=== PATIENT | male | born 1985 | race Caucasian/White ===

== ENCOUNTER → 2020-12-26 10:01 | Outpatient (BNVA) | payer OTHER, SELFPAY | PROVIDERS: Family Provider Nurse Practitioner Family; PCP Nurse Practitioner Family; Visit Provider Nurse Practitioner Family | DX: Z20.822 Contact with and (suspected) exposure to COVID-19 (principal) | CPT/HCPCS: 87635 ==

== ENCOUNTER 2022-04-15 08:10 | Inpatient (IN) | payer MEDICAID, SELFPAY ==
[2022-04-15] VITALS (19 sets, daily range): BP systolic 102–157; BP diastolic 69–95; PULSE 66–108; RESP 12–24; TEMP 36.8–39; O2SAT 91–100; BMI 25.1
--- NOTE | 2022-04-15 08:32 | ED_ITS ---
HPI - Abdominal Pain General: Chief Complaint: Abdominal Pain Stated Complaint: Abd pain Time Seen by Provider: 04/15/22 08:21 History of Present Illness: Patient is a 36-year-old male comes to the ED with abdominal pain. Symptoms started approximately 4 days ago. Onset of pain was gradual and progressively got more severe. Abdominal pain is located in the right lower quadrant. He describes it as an aching pain that is constant. He rates the pain currently a 9 out of 10. he has not been able to sleep for the past 2 days due to the pain. Any movement causes worsening pain and if he rests and lays still he says the pain does improve. He has been taking ibuprofen for the past couple days to help with pain. He endorses a decreased appetite, nausea and had 1 episode of emesis yesterday. Patient states that the over the weekend before pain started he was doing a lot of lifting and yard work. Denies any fevers, chills, chest pain, shortness of breath, bladder or bowel symptoms. Patient had a few sips of water this morning but has not had anything to eat since early last night. Denies any past abdominal surgeries. Associated Symptoms: Reports nausea and vomiting; Denies chills, constipation, diarrhea, dysuria, fever(s), hematochezia and hematuria Review of Systems Const: Reports: change in appetite (Decreased); Denies: fever(s), chills or fatigue Eyes: Denies: change in vision or eye discomfort ENMT: Denies: throat pain, odynophagia, nasal discharge or nasal congestion Card: Denies: chest pain, palpitations, edema, swelling of feet/ankles, dyspnea on exertion or orthopnea Resp: Denies: dyspnea, productive cough or non-productive cough GI: Reports: abdominal pain, nausea and vomiting; Denies: diarrhea, constipation or hematochezia : Denies: flank pain, difficulty urinating, dysuria or hematuria Musc: Denies: neck pain, back pain or extremity swelling Skin/Breast: Denies: rash or new lesions Neuro: Denies: headache(s), numbness in extremities or weakness in extremities PFS ED PFSH: Medical History Anxiety HTN (hypertension) Family History Mother Aneurysm Brother Seizure disorder Father Pacemaker Grandfather Pacemaker Other Heart disease Hypertension Social History Smoking and tobacco status: current every day smoker cigarettes Alcohol intake: current Alcohol intake frequency: holidays/special occasions only Physical Exam Const: COMMON NORMALS: patient oriented x3 and alert GENERAL APPEARANCE: cooperative HENMT: COMMON NORMALS: normocephalic HEAD & SCALP: normocephalic MOUTH: Normal oral and palatal mucosa present THROAT: posterior oropharynx normal and uvula midline Eye: COMMON NORMALS: Equal, round and reactive pupils present and conjunctivae normal CONJUNCTIVA: Yes conjunctivae normal PUPIL: Yes Equal, round and reactive pupils present Neck/C-Spine: COMMON NORMALS: supple GENERAL: Yes normal visual inspection Resp: COMMON NORMALS: normal respiratory effort, No retractions, No use of accessory muscles and clear to auscultation bilaterally AUSCULTATION: clear to auscultation bilaterally Cardio: COMMON NORMALS: regular rate, regular rhythm, S1 normal heart sound present, S2 normal heart sound present, No gallops present (Cardio), No clicks present (Cardio), No murmurs present (Cardio) and Peripheral pulses 2+ throughout RATE: regular rate RHYTHM: regular rhythm HEART SOUNDS: S1 normal heart sound present and S2 normal heart sound present PERIPHERAL PULSES: Peripheral pulses 2+ throughout GI: COMMON NORMALS: Normal to inspection, nondistended, normoactive bowel sounds present, Soft to palpation and no masses PALPATION: Yes Soft to palpation, Yes Tenderness to palpation present (GI) Details: RLQ and Yes Other GI palpation findings present (Positive Rovsing sign) : COMMON NORMALS: Yes no CVA tenderness BLADDER/KIDNEY EXAM: Yes no CVA tenderness Back/Pelvis: COMMON NORMALS: no CVA tenderness Extremity: COMMON NORMALS: normal to inspection and no pedal edema Neuro: COMMON NORMALS: patient oriented x3 and moves all extremities SENSORIUM/ORIENTATION: Yes alert Skin: GENERAL SKIN EXAM: dry skin Course Consultations: Consultation #1: I spoke with Dr. Alba and told about patient case and CT findings of acute appendicitis with likely rupture. Dr. Alba will admit and take to surgery. Time: 09:35 Vital Signs: Vital signs: Vital Signs Temperature 99.4 F 04/15/22 08:20 Pulse Rate 105 H 04/15/22 08:20 Respiratory Rate 18 04/15/22 08:50 Blood Pressure 141/90 04/15/22 08:20 Pulse Oximetry 100 04/15/22 08:50 MDM - Abdominal Pain Medical Decision Making Patient is a 36-year-old male who comes to the ED with abdominal pain. Vitals are stable and patient is afebrile. Patient hasright lower quadrant abdominal tenderness and positive Rovsing sign. White blood cell count 22.3 and CRP 53.3. Rest of the labs are unremarkable. CT of abdomen pelvis shows acute appendicitis with likely rupture but no abscess. I contacted Dr. Alba and told him about patient case and he will be admitting pt and taking him to surgery. Blood cultures pending and patient started on IV Zosyn here in the ED. Lab Data I reviewed the patient's lab results. : 04/15/22 08:31 04/15/22 08:31 Labs/Radiology: Radiology Impressions Abdomen/Pelvis CT 04/15/22 08:53 IMPRESSION: 1. Acute appendicitis with appendiceal rupture likely. 2. Acute inflammatory changes in the RIGHT lower quadrant with free fluid extending to partially encase the cecum. No abscess. 3. Mild small bowel ileus due to the acute appendicitis. Laboratory Results WBC 22.3 10^3/uL (4.0-10.0) H 04/15/22 08:31 RBC 5.18 10^6/uL (4.1-5.3) 04/15/22 08:31 Hgb 16.0 g/dL (11.7-16.6) 04/15/22 08:31 Hct 45.4 % (42.0-52.0) 04/15/22 08:31 MCV 87.6 fl (80-94) 04/15/22 08:31 MCH 30.9 pg (28.0-34.0) 04/15/22 08:31 MCHC 35.2 g/dL (30.0-36.0) 04/15/22 08:31 RDW 12.1 % (12.1-15.1) 04/15/22 08:31 Plt Count 192 10^3/cmm (130-400) 04/15/22 08:31 MPV 10.6 fL (7.4-10.4) H 04/15/22 08:31 Neut % (Auto) 85.1 % 04/15/22 08:31 Lymph % (Auto) 5.9 % 04/15/22 08:31 Dickey % (Auto) 8.3 % 04/15/22 08:31 Eos % (Auto) 0.0 % 04/15/22 08:31 Baso % (Auto) 0.1 % 04/15/22 08:31 Neut # (Auto) 18.99 10^3/uL (1.8-7.7) H 04/15/22 08:31 Lymph # (Auto) 1.3 10^3/uL (0.8-4.8) 04/15/22 08:31 Dickey # (Auto) 1.9 10^3/uL (0.2-0.9) H 04/15/22 08:31 Eos # (Auto) 0.0 10^3/uL (0.0-0.8) 04/15/22 08:31 Baso # (Auto) 0.0 10^3/uL (0.0-0.1) 04/15/22 08:31 Nucleated RBC % (auto) 0 % 04/15/22 08:31 Nucleated RBCs # 0.0 /100WBC 04/15/22 08:31 Sodium 135 mmol/L (136-145) L 04/15/22 08:31 Potassium 4.1 mmol/L (3.5-5.1) 04/15/22 08:31 Chloride 96 mmol/L (98-107) L 04/15/22 08:31 Carbon Dioxide 28 mmol/L (22-29) 04/15/22 08:31 Anion Gap 15.1 (5-19) 04/15/22 08:31 BUN 10 mg/dL (6-20) 04/15/22 08:31 Creatinine 0.8 mg/dL (0.7-1.2) 04/15/22 08:31 GFR Calculation 108.2 mL/min (90-130) 04/15/22 08:31 Glucose 131 mg/dL (65-115) H 04/15/22 08:31 Calculated Osmolality 281 mOsm/kg (285-295) L 04/15/22 08:31 Calcium 10.2 mg/dL (8.5-10.5) 04/15/22 08:31 Total Bilirubin 1.0 mg/dL (0.15-1.2) 04/15/22 08:31 AST 11 U/L (0-40) 04/15/22 08:31 ALT 11 U/L (0-41) 04/15/22 08:31 Alkaline Phosphatase 134 IU/L (40-130) H 04/15/22 08:31 C-Reactive Protein 53.3 mg/L (0.0-4.9) H 04/15/22 08:31 Total Protein 8.0 g/dL (6.6-8.7) 04/15/22 08:31 Albumin 4.9 g/dL (3.5-5.2) 04/15/22 08:31 Globulin 3.1 g/dL (1.3-4.6) 04/15/22 08:31 Lipase 15 U/L (13-60) 04/15/22 08:31 Urine Color Yellow (Yellow) 04/15/22 08:31 Urine Appearance Clear (CLEAR) 04/15/22 08:31 Urine pH 5 (5-7) 04/15/22 08:31 Ur Specific [place] 1.025 (1.005-1.030) 04/15/22 08:31 Urine Protein Neg (Negative) 04/15/22 08:31 Urine Glucose (UA) Norm (Normal) 04/15/22 08:31 Urine Ketones 1+ (Negative) H 04/15/22 08:31 Urine Blood 2+ (Negative) H 04/15/22 08:31 Urine Nitrate Negative (Negative) 04/15/22 08:31 Urine Bilirubin 1+ (Negative) H 04/15/22 08:31 Urine Urobilinogen 1 mg/dL (Negative) H 04/15/22 08:31 Ur Leukocyte Esterase Trace (Negative) H 04/15/22 08:31 Urine RBC None /hpf (0-2) 04/15/22 08:31 Urine WBC 0-4 /hpf (0-5) H 04/15/22 08:31 Ur Squamous Epith Cells None /hpf (0-5) 04/15/22 08:31 Amorphous Sediment Not Reportable 04/15/22 08:31 Urine Bacteria Trace /hpf (NONE) 04/15/22 08:31 Urine Mucus 2+ /hpf 04/15/22 08:31 Discharge Plan Discharge Patient Disposition: Admitted As Inpatient Clinical Impression: Acute appendicitis Qualifiers: Acute appendicitis type: with generalized peritonitis Appendicitis gangrene presence: without gangrene Appendicitis perforation presence: with perforation Appendicitis abscess presence: without abscess Qualified Code(s): K35.20 - Acute appendicitis with generalized peritonitis, without abscess Condition: Stable Coding Level of Care Code 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
[2022-04-15 08:45] LABS: Basophils % 0.1 %; Hematocrit 45.4 % (42.0-52.0); Lymphocytes # 1.3 10^3/uL (0.8-4.8); Lymphocytes % 5.9 %; Mean Corpuscular HGB Conc 35.2 g/dL (30.0-36.0); Mean Corpuscular Hemoglobin 30.9 pg (28.0-34.0); Mean Corpuscular Volume 87.6 fl (80-94); Mean Platelet Volume 10.6 fL (7.4-10.4); Monocytes # 1.9 10^3/uL (0.2-0.9); Monocytes % 8.3 %; Neutrophils # 18.99 10^3/uL (1.8-7.7); Neutrophils % 85.1 %; Nucleated Red Blood Cells % 0 %; Platelet Count 192 10^3/cmm (130-400); Red Blood Count 5.18 10^6/uL (4.1-5.3); Red Cell Distribution Width 12.1 % (12.1-15.1); White Blood Count 22.3 10^3/uL (4.0-10.0)
[2022-04-15 08:49] LABS: Add Urine Microscopic? YES; Bilirubin Urine 1+ (Negative); Blood Urine 2+ (Negative); Glucose Urine UA Norm (Normal); Ketones Urine 1+ (Negative); Leukocyte Esterase Urine Trace (Negative); Nitrate Urine Negative (Negative); Protein Urine Neg (Negative); Specific Gravity, Urine 1.025 (1.005-1.030); Urine Appearance Clear (CLEAR); Urine Color Yellow (Yellow); Urobilinogen Urine 1 mg/dL (Negative); pH Urine 5 (5-7)
[2022-04-15] MEDS: ondansetron 2 mg/ML SDV 2 mL 4 MG IVP (08:49)
[2022-04-15] MEDS: sodium chloride 0.9% 1,000 ML 999 ML IV (08:50)
[2022-04-15] MEDS: morphine 4 mg/mL SDV 1 mL IVP (08:50)
--- NOTE | 2022-04-15 08:53 | CT_ITS ---
WS: [id number] CT ABDOMEN AND PELVIS WITH CONTRAST HISTORY: RLQ tenderness, n/v TECHNIQUE: Imaging performed of the abdomen and pelvis with IV contrast. Single phase imaging of the abdomen. Coronal and sagittal reformats are submitted. All CT scans at [facility] use at [address] one of these dose optimization techniques: automated exposure control; mA and/or kV adjustment per patient size (includes targeted exams where dose is matched to clinical indication); or iterative re construction. IV CONTRAST: Omnipaque 350; 75 mL IV. Oral contrast: No DLP: 1794.56 mGy.cm COMPARISON: None available. Lower thorax: Lung bases are clear. Heart is normal size. No hiatal hernia. Liver/biliary system: Normal size with no intrahepatic dilatation. Normal portal vein. Gallbladder: Normal. No gallstones or wall thickening. No pericholecystic fluid. Pancreas: Normal size pancreas and pancreatic duct. No adjacent inflammation. Spleen: Normal size spleen. No mass or infarct. Adrenal glands: Normal. Right kidney: Normal. Left kidney: Normal. Aorta: Mild atherosclerosis with no aneurysm. Lymphadenopathy: Small mildly vascular lymph nodes in the RIGHT lower quadrant. Free fluid: Small amount of free fluid in the pelvis. There is additional fluid in the RIGHT lower qu adrant extending along the paracolic gutter and partially encasing the cecum. GI tract: The appendix is abnormal. The appendix is dilated with enhancement and appendicolith. Diame ter of the appendix is 15 mm. There is a large amount of adjacent periappendiceal inflammation. Fluid extends along the paracolic gutter and also to partially encase the cecum and towards the inferior l iver. Highly suspicious for ruptured appendicitis. No abscess. Mild dilatation of several central sma ll bowel loops is probably due to an ileus from the appendicitis. Abdominal wall: Unremarkable abdominal wall. No hernia. Pelvis: Minimally distended urinary bladder. Small amount of free fluid in the pelvis. No adenopathy. Bones: Unremarkable. CT/CT abdomen pelvis w con* [id number] IMPRESSION: 1. Acute appendicitis with appendiceal rupture likely. 2. Acute inflammatory changes in the RIGHT lower quadrant with free fluid exte nding to partially encase the cecum. No abscess. 3. Mild small bowel ileus due to the acute appendicitis.
[2022-04-15 09:03] LABS: Alanine Aminotransferase 11 U/L (0-41); Albumin Level 4.9 g/dL (3.5-5.2); Alkaline Phosphatase 134 IU/L (40-130); Anion Gap 15.1 (5-19); Aspartate Amino Transferase 11 U/L (0-40); Blood Urea Nitrogen 10 mg/dL (6-20); C Reactive Protein 53.3 mg/L (0.0-4.9); Calcium 10.2 mg/dL (8.5-10.5); Carbon Dioxide 28 mmol/L (22-29); Chloride 96 mmol/L (98-107); Globulin 3.1 g/dL (1.3-4.6); Glomerular Filtration Rate 108.2 mL/min (90-130); Glucose 131 mg/dL (65-115); Lipase 15 U/L (13-60); Osmolality Calculated 281 mOsm/kg (285-295); Potassium 4.1 mmol/L (3.5-5.1); Sodium 135 mmol/L (136-145)
[2022-04-15 09:08] LABS: Bacteria Urine TRACE /hpf; Mucus Urine 2+ /hpf; WBC Urine 0-4 /hpf (0-5)
[2022-04-15] MEDS: iohexol 350 mg/mL 100 mL Btl IV (09:14)
[2022-04-15] MEDS: piperacillin-tazobactam 3.375 GM in sodium chloride 0.9% (plus) 50 ML IV ×2 (09:55→17:30)
--- NOTE | 2022-04-15 11:30 | P.HP_ITS ---
Providers/Chief Complaint Chief Complaint: Abd pain History of Present Illness Gautam Grimm is a 36 year old male who presents with abdominal pain for 4 days. He reports that 4 days ago he began having right lower quadrant abdominal pain which gradually worsened. The pain is sharp and constant and radiates across his abdomen. He has had nausea and vomiting but denies hematemesis. Denies diarrhea or constipation. He reports chills but no documented fever. CT findings are consistent with ruptured appendicitis. Review of Systems General: Reports: 10 or more systems reviewed and unremarkable except in HPI and below Medications/Allergies Allergies Allergy/AdvReac Type Severity Reaction Status Date / Time No Known Allergies Allergy Verified 12/26/20 08:24 PFSH Acute PFSH: Medical History Anxiety HTN (hypertension) Family History Mother Aneurysm Brother Seizure disorder Father Pacemaker Grandfather Pacemaker Other Heart disease Hypertension Social History Smoking and tobacco status: current every day smoker cigarettes Alcohol intake: current Alcohol intake frequency: holidays/special occasions on ly Vitals/I&O/Wt Last Vital Signs Temp 102.2 F H 04/15/22 11:27 Pulse 103 H 04/15/22 11:27 Resp 18 04/15/22 11:27 BP 130/78 04/15/22 11:27 Pulse Ox 97 04/15/22 11:27 Weight last 48 hrs Weight 180 lb Physical Exam Narrative: General : Patient is well developed , no acute distress, oriented x3 Head : Normal cephalic, a-traumatic. Ears : Pinnae and external canal are normal. Hearing is normal. Eyes : PERRLA, Sclera and injection are normal. No conjunctival discharge. Nose : Mucous membranes are without erythema. Throat : buccal mucosa is normal, gums are without significant recession or hypertrophy. Lungs : Equal chest rise bilaterally, no use of accessory muscles, trachea is midline. Cor : Rate and rhythm are normal. Abdomen : Soft, mild distention, tender to palpation right lower quadrant, no g/r/m Extremities : No edema, no cyanosis or clubbing, dorsalis pedis pulses are present bilaterally, non-tender to palpation of calves. Upper extremities are normal bilaterally. Back : non-tender to palpation, no CVA tenderness. Neuro : CN II - XII intact, Upper and lower extremities have equal and full strength Data : 04/15/22 08:31 04/15/22 08:31 Micro: Microbiology 04/15/22 10:33 Blood Culture - Preliminary Blood SPECIMEN COLLECTED 04/15/22 10:28 Blood Culture - Preliminary Blood SPECIMEN COLLECTED A&P Assessment and plan (1) Acute appendicitis: Possibly ruptured Status: Acute Qualifiers: Acute appendicitis type: with generalized peritonitis Appendicitis abscess presence: without abscess Appendicitis gangrene presence: without gangrene Appendicitis perforation presence: with perforation Qualified Code(s): K35.20 - Acute appendicitis with generalized peritonitis, without abscess Plan Laparoscopic Appendectomy The risks and benefits of the procedure, including but not limited to, bleeding, infection, scar, numbness, pain, damage to surrounding structures, conversion to an open procedure, were explained to the patient. He is understanding of the risks and wishes to proceed. Attestations Medical Necessity Statement*: Patient has acute appendicitis and needs admission. 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
[2022-04-15] MEDS: sodium chloride 0.9% 1,000 ML 30 ML IV (11:31)
--- NOTE | 2022-04-15 11:59 | ANES.PREANE2 ---
Pre-Anesthetic Assessment Height/Weight: Height 1.8 m Weight 81.647 kg Temp Pulse Resp BP Pulse Ox 102.2 F H 103 H 18 130/78 97 04/15/22 11:27 04/15/22 11:27 04/15/22 11:27 04/15/22 11:27 04/15/22 11:27 Operation Date: 04/15/22 11:40 Proposed Procedures p Laparoscopic Appendectomy(Not Applicable) - Iam Alba DO Familial anesthetic complications: None Was Beta Suma taken within 24 hours: N/A Was Clonidine taken within 24 hours: N/A Last intake: Intake Last Liquid Date 04/15/22 Last Liquid Time 08:00 Last Solid Date 04/14/22 Last Solid Time 12:00 Social Tobacco and No alcohol Exam alert, oriented x 3 and clear to auscultation bilaterally tachycadic Airway Mallampati: Class III Dentition: other (missing, poor dentition) Pulmonary Chronic Obstructive Pulmonary Disease CV/HEM Stable Angina and Hypertension echo CONCLUSIONS ?1.? Normal left ventricular size, systolic function and wall ?thickness with no regional wall motion abnormalities.? Left ?ventricular ejection fraction is estimated at 63%.? Normal ?diastolic filling pattern.? ?2.? No significant chamber abnormalities. ?3.? No sigificant valve abnormalities. ?4.? There is no pericardial effusion. ?5.? There are no intracardiac masses. ?6.? Pulmonary artery systolic pressure is within normal limits. ?7.? Right atrial pressure is around [5] mm of mercury. ?8.? There are no prior echocardiogram studies to compare. Anesthetic Plan ASA status: 3 Anesthesia: General Risk of > 500 ml blood loss (7ml/kg in children): No Medications/Allergies Allergies Allergy/AdvReac Type Severity Reaction Status Date / Time No Known Allergies Allergy Verified 12/26/20 08:24 Current Medications Generic Name Dose Route Start Last Admin Trade Name Freq PRN Reason Stop Dose Admin Sodium Chloride 1,000 mls @ 30 mls/hr 04/15/22 11:30 04/15/22 11:31 Sodium Chloride 0.9% IV 04/16/22 11:29 30 mls/hr .Q24H MEMO Administration PFSH Anesthesia Medical History Anxiety HTN (hypertension) Family History Mother Aneurysm Brother Seizure disorder Father Pacemaker Grandfather Pacemaker Other Heart disease Hypertension Social History Smoking and tobacco status: current every day smoker cigarettes Alcohol intake: current Alcohol intake frequency: holidays/special occasions only Data Anesthesia : 04/15/22 08:31 04/15/22 08:31 Short CBC 04/15/22 Range/Units 08:31 WBC 22.3 H (4.0-10.0) 10^3/uL Hgb 16.0 (11.7-16.6) g/dL Hct 45.4 (42.0-52.0) % MCV 87.6 (80-94) fl Plt Count 192 (130-400) 10^3/cmm Neut % (Auto) 85.1 % Neut # (Auto) 18.99 H (1.8-7.7) 10^3/uL BMP 04/15/22 08:31 Sodium 135 L Potassium 4.1 Chloride 96 L Carbon Dioxide 28 BUN 10 Creatinine 0.8 Glucose 131 H Calcium 10.2 Liver Function 04/15/22 Range/Units 08:31 Total Bilirubin 1.0 (0.15-1.2) mg/dL AST 11 (0-40) U/L ALT 11 (0-41) U/L Alkaline Phosphatase 134 H (40-130) IU/L Albumin 4.9 (3.5-5.2) g/dL Urine 04/15/22 Range/Units 08:31 Urine Color Yellow (Yellow) Urine Appearance Clear (CLEAR) Urine pH 5 (5-7) Ur Specific [place] 1.025 (1.005-1.030) Urine Protein Neg (Negative) Urine Glucose (UA) Norm (Normal) Urine Ketones 1+ H (Negative) Urine Nitrate Negative (Negative) Urine Bilirubin 1+ H (Negative) Ur Leukocyte Esterase Trace H (Negative) Urine RBC None (0-2) /hpf Urine WBC 0-4 H (0-5) /hpf Coags 04/15/22 08:31 C-Reactive Protein 53.3 H Microbiology 04/15/22 10:33 Blood Culture - Preliminary Blood SPECIMEN COLLECTED 04/15/22 10:28 Blood Culture - Preliminary Blood SPECIMEN COLLECTED Cardiac Studies: No Data to Display
--- NOTE | 2022-04-15 16:15 | PC.NURSE ---
report given to Cayla Magallanes RN on med surge
--- NOTE | 2022-04-15 16:35 | ANE.PACU2 ---
Inpatient post-anesthesia follow up: Airway intact: Yes Vital signs: Temperature 99.1 F Pulse Rate 92 Respiratory Rate 18 Blood Pressure 153/88 Pulse Oximetry 95 Oxygen Delivery Me thod Room Air Oxygen Flow Rate 6 Fraction of Inspir ed Oxygen Hydration adequate: Yes Nausea and vomiting: No Pain level: 2 Mental status: Baseline
[2022-04-15] MEDS: pantoprazole 40 mg SDV IVP (17:30)
[2022-04-15] MEDS: lactated ringers 1,000 ML 125 ML IV (17:30)
[2022-04-15] MEDS: heparin 5,000 unit/mL INJ 1 mL 5000 UNIT SUBCUT (17:31)
[2022-04-15] MEDS: HYDROcodone-acetaminophen 5-325 mg Tablet 1 TAB PO (20:25)
[2022-04-16] VITALS (7 sets, daily range): BP systolic 115–132; BP diastolic 74–87; PULSE 63–90; RESP 16–18; TEMP 36.4–37.3; O2SAT 94–97
[2022-04-16] MEDS: piperacillin-tazobactam 3.375 GM in sodium chloride 0.9% (plus) 50 ML IV ×4 (00:16→23:59)
[2022-04-16] MEDS: heparin 5,000 unit/mL INJ 1 mL 5000 UNIT SUBCUT ×4 (00:19→23:59)
[2022-04-16] MEDS: HYDROcodone-acetaminophen 5-325 mg Tablet 1 TAB PO ×3 (01:50→20:30)
[2022-04-16 05:23] LABS: Basophils % 0.2 %; Eosinophils # 0.1 10^3/uL (0.0-0.8); Eosinophils % 0.5 %; Hematocrit 37.7 % (42.0-52.0); Hemoglobin 13.2 g/dL (11.7-16.6); Lymphocytes % 8.5 %; Mean Corpuscular Hemoglobin 30.5 pg (28.0-34.0); Mean Corpuscular Volume 87.1 fl (80-94); Monocytes # 2.1 10^3/uL (0.2-0.9); Monocytes % 8.6 %; Neutrophils % 81.6 %; Nucleated Red Blood Cells % 0 %; Platelet Count 171 10^3/cmm (130-400); Red Blood Count 4.33 10^6/uL (4.1-5.3); Red Cell Distribution Width 12.1 % (12.1-15.1); White Blood Count 23.9 10^3/uL (4.0-10.0)
[2022-04-16 05:46] LABS: Blood Urea Nitrogen 11 mg/dL (6-20); Calcium 9.3 mg/dL (8.5-10.5); Carbon Dioxide 24 mmol/L (22-29); Chloride 100 mmol/L (98-107); Glomerular Filtration Rate 94.4 mL/min (90-130); Glucose 116 mg/dL (65-115); Magnesium 1.7 mg/dL (1.7-2.3); Osmolality Calculated 282 mOsm/kg (285-295); Phosphorus 2.7 mg/dL (2.5-4.5); Sodium 136 mmol/L (136-145)
[2022-04-16] MEDS: lactated ringers 1,000 ML 125 ML IV (06:40)
--- NOTE | 2022-04-16 07:59 | PC.PHAR ---
pt and pts verified medications-pts states the pt stop taking lisinopril 10mg daily in sep 2021 and started taking the superbeets powder every 2-3 days
[2022-04-16] MEDS: morphine 4 mg/mL SDV 1 mL IVP (10:16)
[2022-04-16] MEDS: pantoprazole 40 mg SDV IVP (15:36)
[2022-04-16 15:40] LABS: Glucose Point of Care 112 mg/dL (70-110)
[2022-04-17] VITALS: BP 106/69; PULSE 90; RESP 19; TEMP 37.4; O2SAT 94
[2022-04-17] MEDS: HYDROcodone-acetaminophen 5-325 mg Tablet 1 TAB PO ×5 (01:12→21:23)
[2022-04-17 04:17] VITALS: BP 124/77; PULSE 92; RESP 16; TEMP 37.1; O2SAT 93
[2022-04-17 05:24] LABS: Basophils % 0.1 %; Eosinophils % 0.2 %; Hematocrit 38.7 % (42.0-52.0); Hemoglobin 13.9 g/dL (11.7-16.6); Lymphocytes # 1.6 10^3/uL (0.8-4.8); Lymphocytes % 11.7 %; Mean Corpuscular HGB Conc 35.9 g/dL (30.0-36.0); Mean Corpuscular Hemoglobin 30.8 pg (28.0-34.0); Mean Corpuscular Volume 85.6 fl (80-94); Mean Platelet Volume 11.4 fL (7.4-10.4); Monocytes # 1.1 10^3/uL (0.2-0.9); Monocytes % 7.6 %; Neutrophils # 11.24 10^3/uL (1.8-7.7); Nucleated Red Blood Cells % 0 %; Platelet Count 136 10^3/cmm (130-400); Red Blood Count 4.52 10^6/uL (4.1-5.3); Red Cell Distribution Width 12.1 % (12.1-15.1); White Blood Count 14.1 10^3/uL (4.0-10.0)
[2022-04-17 05:56] LABS: Slide Review Slide Review Perform
[2022-04-17 07:18] LABS: Blood Urea Nitrogen 15 mg/dL (6-20); Calcium 8.7 mg/dL (8.5-10.5); Carbon Dioxide 23 mmol/L (22-29); Chloride 99 mmol/L (98-107); Glomerular Filtration Rate 108.2 mL/min (90-130); Glucose 100 mg/dL (65-115); Osmolality Calculated 279 mOsm/kg (285-295); Phosphorus 1.6 mg/dL (2.5-4.5); Sodium 134 mmol/L (136-145)
[2022-04-17 07:35] LABS: Anion Gap 16.1 (5-19); Potassium 4.1 mmol/L (3.5-5.1)
[2022-04-17] MEDS: lactated ringers 1,000 ML 125 ML IV (07:49)
[2022-04-17 08:00] VITALS: BP 130/87; PULSE 90; RESP 90; TEMP 36.6; O2SAT 96
[2022-04-17] MEDS: heparin 5,000 unit/mL INJ 1 mL 5000 UNIT SUBCUT ×2 (08:30→17:24)
[2022-04-17] MEDS: piperacillin-tazobactam 3.375 GM in sodium chloride 0.9% (plus) 50 ML IV ×2 (08:31→17:24)
[2022-04-17 15:00] VITALS: BP 132/88; PULSE 83; TEMP 36.5; O2SAT 98
--- NOTE | 2022-04-17 15:08 | PM.PN ---
Subjective Subjective: Patient seen and examined. Patient was also seen and examined yesterday however a note was inadvertently not entered. He continues to improve. He still has not had a bowel movement but is passing flatus. He denies any nausea or vomiting. He does not have much of an appetite but Vitals/I&O/Wt Last Vital Signs Temp 97.9 F 04/17/22 08:00 Pulse 90 04/17/22 08:00 Resp 90 H 04/17/22 08:00 BP 130/87 04/17/22 08:00 Pulse Ox 96 04/17/22 08:00 04/17/22 04/17/22 04/17/22 06:59 14:59 22:59 Intake Total 260.416 / 1090.000 840 / 840 Balance 260.416 / 1045.000 840 / 840 Physical Exam Narrative: General: No acute distress, awake alert and oriented x3 Abdomen: Soft, mildly distended, appropriately tender to palpation, no guarding rebound or masses Incisions: Intact without erythema or exudate Data : 04/17/22 04:30 04/17/22 06:28 Micro: Microbiology 04/15/22 10:33 Blood Culture - Preliminary Blood NEGATIVE TO DATE 04/15/22 10:28 Blood Culture - Preliminary Blood NEGATIVE TO DATE A&P Assessment and plan (1) Acute appendicitis: Status: Acute Qualifiers: Acute appendicitis type: with generalized peritonitis Appendicitis abscess presence: without abscess Appendicitis gangrene presence: without gangrene Appendicitis perforation presence: with perforation Qualified Code(s): K35.20 - Acute appendicitis with generalized peritonitis, without abscess Plan Postoperative day 2 status post laparoscopic appendectomy Continue IV antibiotic therapy as patient was perforated with abscess and stool in the abdomen Ambulate Hopefully will be able to discharge home tomorrow with a 2-week course of antibiotics Attestations Medical Necessity Statement*: Patient underwent laparoscopic appendectomy for perforated appendicitis with abscess formation and eduardo stool in the abdomen. He needs at least 1 more day of IV antibiotic therapy. Coding Level of Care Code Acute Language Specialist for [facility] Diagnoses Acute appendicitis K35.20 Acute appendicitis type: with generalized peritonitis Appendicitis abscess presence: without abscess Appendicitis gangrene presence: without gangrene Appendicitis perforation presence: with perforation
[2022-04-17 16:00] VITALS: BP 144/90; PULSE 106; RESP 13; TEMP 36.6; O2SAT 95
[2022-04-17] MEDS: pantoprazole 40 mg SDV IVP (17:23)
[2022-04-17 19:44] VITALS: BP 141/84; PULSE 94; RESP 16; TEMP 37; O2SAT 95
[2022-04-18] VITALS: BP 142/96; PULSE 89; RESP 16; TEMP 37.1; O2SAT 97
[2022-04-18] MEDS: ondansetron 2 mg/ML SDV 2 mL 4 MG IVP (00:30)
[2022-04-18] MEDS: heparin 5,000 unit/mL INJ 1 mL 5000 UNIT SUBCUT ×3 (00:30→17:08)
[2022-04-18] MEDS: HYDROcodone-acetaminophen 5-325 mg Tablet 1 TAB PO ×5 (00:37→23:59)
[2022-04-18] MEDS: lactated ringers 1,000 ML 125 ML IV ×4 (03:00→20:56)
[2022-04-18 04:27] VITALS: BP 139/98; PULSE 77; RESP 16; TEMP 37; O2SAT 97
[2022-04-18 05:14] LABS: Basophils % 0.1 %; Eosinophils # 0.1 10^3/uL (0.0-0.8); Eosinophils % 0.3 %; Hematocrit 42.9 % (42.0-52.0); Hemoglobin 14.8 g/dL (11.7-16.6); Lymphocytes # 1.6 10^3/uL (0.8-4.8); Lymphocytes % 11.2 %; Mean Corpuscular HGB Conc 34.5 g/dL (30.0-36.0); Mean Corpuscular Hemoglobin 30.4 pg (28.0-34.0); Mean Corpuscular Volume 88.1 fl (80-94); Mean Platelet Volume 10.9 fL (7.4-10.4); Monocytes # 1.1 10^3/uL (0.2-0.9); Monocytes % 7.5 %; Neutrophils # 11.53 10^3/uL (1.8-7.7); Neutrophils % 80.5 %; Nucleated Red Blood Cells % 0 %; Platelet Count 188 10^3/cmm (130-400); Red Blood Count 4.87 10^6/uL (4.1-5.3); White Blood Count 14.4 10^3/uL (4.0-10.0)
[2022-04-18 05:39] LABS: Blood Urea Nitrogen 14 mg/dL (6-20); Calcium 9.3 mg/dL (8.5-10.5); Carbon Dioxide 28 mmol/L (22-29); Chloride 94 mmol/L (98-107); Glomerular Filtration Rate 108.2 mL/min (90-130); Glucose 127 mg/dL (65-115); Magnesium 2.1 mg/dL (1.7-2.3); Osmolality Calculated 276 mOsm/kg (285-295); Phosphorus 3.3 mg/dL (2.5-4.5); Sodium 132 mmol/L (136-145)
[2022-04-18] MEDS: piperacillin-tazobactam 3.375 GM in sodium chloride 0.9% (plus) 50 ML IV ×2 (09:23→16:59)
[2022-04-18 11:09] VITALS: BP 123/85; PULSE 79; RESP 18; O2SAT 97
[2022-04-18 15:24] VITALS: BP 124/78; PULSE 75; RESP 17; O2SAT 98
[2022-04-18] MEDS: pantoprazole 40 mg SDV IVP (16:59)
[2022-04-18 20:16] VITALS: BP 121/79; PULSE 80; RESP 16; TEMP 37.3; O2SAT 95
--- NOTE | 2022-04-18 23:37 | P.PN_ITS ---
Subjective Subjective: Patient reports that his pain has improved. +Flatus. No BM. tolerating regular diet. Vitals/I&O/Wt Last Vital Signs Temp 99.2 F 04/18/22 20:16 Pulse 80 04/18/22 20:16 Resp 16 04/18/22 20:16 BP 121/79 04/18/22 20:16 Pulse Ox 95 04/18/22 20:16 04/18/22 04/18/22 04/19/22 14:59 22:59 06:59 Intake Total 1156.25 / 1156.25 1165 / 2321.25 Output Total / Balance 1156.25 / 1156.25 1162 / 2318.25 Physical Exam Narrative: General: No acute distress, awake alert and oriented x3 Abdomen: Soft, mildly distended, appropriately tender to palpation, no guarding rebound or masses Incisions: Intact without erythema or exudate Drain: Data : 04/18/22 04:43 04/18/22 04:43 A&P Assessment and plan (1) Acute appendicitis: Status: Acute Qualifiers: Acute appendicitis type: with generalized peritonitis Appendicitis abscess presence: without abscess Appendicitis gangrene presence: without gangrene Appendicitis perforation presence: with perforation Qualified Code(s): K35.20 - Acute appendicitis with generalized peritonitis, without abscess Plan Postoperative day 3 status post laparoscopic appendectomy Continue IV antibiotic therapy as patient was perforated with abscess and stool in the abdomen Patient was tachycardic overnight and WBC went up slightly Ambulate Hopefully will be able to discharge home tomorrow to complete a 2-week course of antibiotics Attestations Medical Necessity Statement*: Patient underwent laparoscopic appendectomy for perforated appendicitis with abscess formation and eduardo stool in the abdomen. He needs at least 1 more day of IV antibiotic therapy. 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
[2022-04-19] VITALS (9 sets, daily range): BP systolic 112–136; BP diastolic 74–86; PULSE 76–90; RESP 16–18; TEMP 36.4–37.1; O2SAT 93–96
[2022-04-19] MEDS: heparin 5,000 unit/mL INJ 1 mL 5000 UNIT SUBCUT ×3 (00:01→15:08)
[2022-04-19] MEDS: HYDROcodone-acetaminophen 5-325 mg Tablet 1 TAB PO ×4 (04:09→21:55)
[2022-04-19 05:40] LABS: Basophils % 0.3 %; Eosinophils # 0.1 10^3/uL (0.0-0.8); Eosinophils % 1.2 %; Hematocrit 39.9 % (42.0-52.0); Hemoglobin 13.9 g/dL (11.7-16.6); Lymphocytes # 2.1 10^3/uL (0.8-4.8); Lymphocytes % 19.5 %; Mean Corpuscular HGB Conc 34.8 g/dL (30.0-36.0); Mean Corpuscular Hemoglobin 30.5 pg (28.0-34.0); Mean Corpuscular Volume 87.5 fl (80-94); Monocytes # 1.2 10^3/uL (0.2-0.9); Monocytes % 10.8 %; Neutrophils # 7.37 10^3/uL (1.8-7.7); Neutrophils % 67.6 %; Nucleated Red Blood Cells % 0 %; Platelet Count 190 10^3/cmm (130-400); Red Blood Count 4.56 10^6/uL (4.1-5.3); Red Cell Distribution Width 12.1 % (12.1-15.1); White Blood Count 10.9 10^3/uL (4.0-10.0)
[2022-04-19 06:10] LABS: Anion Gap 12.9 (5-19); Blood Urea Nitrogen 11 mg/dL (6-20); Calcium 9.4 mg/dL (8.5-10.5); Carbon Dioxide 29 mmol/L (22-29); Chloride 96 mmol/L (98-107); Glomerular Filtration Rate 94.4 mL/min (90-130); Glucose 101 mg/dL (65-115); Osmolality Calculated 278 mOsm/kg (285-295); Potassium 3.9 mmol/L (3.5-5.1); Sodium 134 mmol/L (136-145)
--- NOTE | 2022-04-19 06:48 | P.OP_ITS ---
Operative Report Date of procedure: April 15, 2022 Pre-op diagnosis: Acute appendicitis Post-op diagnosis: same Procedure done: Laparoscopic Appendectomy Specimens removed/disposition: appendix Surgeon: Dr. Iam Alba DO Estimated blood loss: 10 Complications: none apparent Brief History: 36 year old male presented with 4 days of abdominal pain and was found to have perforated appendicitis by CT. Laparoscopic appendectomy was indicated. Risks and benefits were explained and documented. Procedure: Patient was wheeled into the operative room and placed on the OR table in a supine position. Abdomen was inspected prepped and draped in usual sterile fashion. Time-out was performed and all present were in agreement. A 15 blade scalp was used to make a stab incision in the left upper quadrant and intra- abdominal insufflation was achieved using a Veress needle. After localizing the tissue incisions were made and a 12 millimeter trocar was placed into the umbilicus as well as a 5mm in the right lower quadrant and a 5 mm in the left lower quadrant . The appendix was difficult to identify as there was a large phlegmon, abscess and stool in the abdomen. The appendix was perforated midway and large stool balls were found contained within an abscess cavity. Extensive dissection was required to free the base of the appendix.. I used the Voyant to ligate the mesoappendix at the base. I then used 2 PDS endo-loops to snare the base of the appendix. I then used the Voyant to ligate the appendix distally. The appendix was removed in pieces, along with stool, from the abdomen using an Endo-Catch bag through the umbilical incision. I examined the abdomen and no further pathology was identified. Hemostasis was noted. A 19 Fr Aurelio drain was placed into the abscess cavity, coming out of the right lower quadrant. I then closed the umbilical site with a Ronaldo-Andres and 0 Vicryl suture in a figure of 8 fashion. All ports removed. Skin was washed and dried. Incisions were closed with 3-0 nylone in an interrupted fashion. Bandages were applied. Patient tolerated the procedure well.
[2022-04-19 07:15] LABS: Slide Review Slide Review Perform
[2022-04-19] MEDS: piperacillin-tazobactam 3.375 GM in sodium chloride 0.9% (plus) 50 ML IV ×3 (08:58→17:35)
[2022-04-19] MEDS: lactated ringers 1,000 ML 125 ML IV (08:59)
[2022-04-19] MEDS: metroNIDAZOLE IV 500 MG/100 ML PREMIX 100 MG IV ×3 (09:33→20:30)
[2022-04-19] MEDS: metoclopramide 5 mg/mL SDV 2 mL 10 MG IVP (12:41)
[2022-04-19] MEDS: morphine 4 mg/mL SDV 1 mL IVP (12:41)
[2022-04-19] MEDS: pantoprazole 40 mg SDV IVP (15:06)
--- NOTE | 2022-04-19 16:19 | P.PN_ITS ---
Subjective Subjective: Patient undergone laparoscopic appendectomy by my partner Dr. Alba few days ago and was found to have perforated appendicitis and feculent material. Per abdominal cavity. Patient today reports that he is tolerating p.o. intake yet he felt bloated and he continues to pass gas. WBC count is t rending down to 10.9, adequate urine output and stable vital signs Medications: Reviewed: Yes Vitals/I&O/Wt Last Vital Signs Temp 98.7 F 04/19/22 12:00 Pulse 88 04/19/22 13:50 Resp 18 04/19/22 13:50 BP 134/83 04/19/22 12:00 Pulse Ox 94 04/19/22 13:50 04/19/22 04/19/22 04/19/22 06:59 14:59 22:59 Intake Total 1290.000 / 3611.250 278.333 / 278.333 0 / 278.333 Output Total 200 / 200 Balance 1290.000 / 3608.250 78.333 / 78.333 0 / 78.333 Physical Exam Narrative: Patient is conscious alert oriented X3 No apparent distress BMI 25 Head and neck examination PERRLA no masses no cervical lymphadenopathy no jaundice Cardiac examination audible S1-S2 no murmurs no gallops no arrhythmias Chest scattered rhonchi on the right side Abdomen nontender except mildly at the incisions nondistended soft no organom egaly guarding or rigidity/no signs of peritonitis, lower abdominal drain with serous output Right-sided flank cellulitic changes marked by the nursing staff Extremities no cyanosis no clubbing no edema Data : 04/19/22 04:55 04/19/22 04:55 A&P Assessment and plan (1) Acute appendicitis: Assessment 36 years old gentleman status post laparoscopic appendectomy for perforated appendicitis 04/15/2022 Plan We will add Flagyl to Zosyn. Incentive spirometer every hour As the patient is bloated I will have him back on clear liquid diet Encourage ambulation and continue pharmacologic DVT prophylaxis We will continue monitoring cellulitic changes on the right side of the abdomen Will follow on CBC and BMP tomorrow Assurance and education All questions have been answered and all concerns have been addressed to marilyn ballesteros's satisfaction. 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
[2022-04-20] VITALS: BP 136/89; PULSE 77; RESP 18; TEMP 37.1; O2SAT 94
[2022-04-20] MEDS: piperacillin-tazobactam 3.375 GM in sodium chloride 0.9% (plus) 50 ML IV ×3 (01:14→17:33)
[2022-04-20] MEDS: lactated ringers 1,000 ML 75 ML IV ×3 (01:19→21:59)
[2022-04-20] MEDS: heparin 5,000 unit/mL INJ 1 mL 5000 UNIT SUBCUT ×3 (01:20→17:33)
[2022-04-20] MEDS: HYDROcodone-acetaminophen 5-325 mg Tablet 1 TAB PO ×5 (02:19→23:08)
[2022-04-20 02:21] LABS: Basophils % 0.3 %; Eosinophils # 0.1 10^3/uL (0.0-0.8); Eosinophils % 0.9 %; Hematocrit 37.3 % (42.0-52.0); Hemoglobin 13.2 g/dL (11.7-16.6); Lymphocytes # 2.3 10^3/uL (0.8-4.8); Lymphocytes % 17.9 %; Mean Corpuscular HGB Conc 35.4 g/dL (30.0-36.0); Mean Corpuscular Hemoglobin 30.8 pg (28.0-34.0); Mean Corpuscular Volume 86.9 fl (80-94); Mean Platelet Volume 10.8 fL (7.4-10.4); Monocytes # 1.1 10^3/uL (0.2-0.9); Monocytes % 8.8 %; Neutrophils % 71.5 %; Nucleated Red Blood Cells % 0 %; Platelet Count 200 10^3/cmm (130-400); Red Blood Count 4.29 10^6/uL (4.1-5.3); Red Cell Distribution Width 12.1 % (12.1-15.1); White Blood Count 12.9 10^3/uL (4.0-10.0)
[2022-04-20 02:37] LABS: Slide Review Slide Review Perform
[2022-04-20 02:40] LABS: Blood Urea Nitrogen 10 mg/dL (6-20); Calcium 9.3 mg/dL (8.5-10.5); Carbon Dioxide 27 mmol/L (22-29); Chloride 96 mmol/L (98-107); Glomerular Filtration Rate 108.2 mL/min (90-130); Glucose 102 mg/dL (65-115); Osmolality Calculated 275 mOsm/kg (285-295); Sodium 133 mmol/L (136-145)
[2022-04-20] MEDS: metroNIDAZOLE IV 500 MG/100 ML PREMIX 100 MG IV ×4 (04:13→21:59)
--- NOTE | 2022-04-20 06:46 | CT_ITS ---
WS: [id number] CT ABDOMEN PELVIS TECHNIQUE: Contrast-enhanced CT of the abdomen and pelvis with coronal and sagittal reformatted image s. CLINICAL INFORMATION: Right-sided flank pain and redness COMPARISON: CT April 15, 2022 DLP: 1988.[address] scans at [facility] use at least one of these dose optimization techniques: automated e xposure control; mA and/or kV adjustment per patient size (includes targeted exams where dose is matc hed to clinical indication); or iterative reconstruction. FINDINGS: Small bilateral pleural effusions with bibasilar atelectasis RIGHT greater than LEFT. This is new fro m previous. Postoperative changes appendectomy are new from previous. RIGHT lower quadrant surgical drain. No ladi dence of drainable abscess or fluid collection. Expected postoperative changes with a small amount of fluid and induration in the RIGHT lower quadrant. Diffuse moderate gaseous distention of the small bowel likely due to adynamic ileus post surgery. A f ew air-fluid levels in the mid small bowel. Colon is normal. A few reactive lymph nodes in the RIGHT lower quadrant. Small amount of free fluid in the pelvis. Normal liver. Normal portal vein and splenic vein. Normal p ancreas. Normal spleen. Normal GE junction. Normal stomach. Adrenal glands are normal. Normal renal p arenchymal enhancement. No hydronephrosis. Celiac and SMA are patent. Normal caliber abdominal aorta. Gallbladder appears normal. CT/CT abdomen pelvis w con* [id number] IMPRESSION: 1. Postoperative changes recent appendectomy with expected postoperative luther es RIGHT lower quadrant. No drainable abscess or fluid collection. 2. Small amount of fluid and induration RIGHT lower quadrant with surgical jt in in place. This is normal postoperative. 3. Small bowel ileus likely due to post anesthesia status. 4. Small amount of free fluid in the pelvis. 5. Small bilateral pleural effusions RIGHT greater than LEFT compressive atele ctasis in lung bases new from previous. 6. No other significant findings
--- NOTE | 2022-04-20 06:47 | PM.PN ---
Subjective Subjective: Patient complains of worsening pain of the right flank in the presence of slight increase in cellulitic changes, continues to pass gas, serous output per drain. Also complains of a spot on his right thigh that has been hurting him. Adequate urine output. Trending up and WBC count to 12.9 Medications: Reviewed: Yes Vitals/I&O/Wt Last Vital Signs Temp 98.8 F 04/20/22 00:00 Pulse 77 04/20/22 00:00 Resp 18 04/20/22 00:00 BP 136/89 04/20/22 00:00 Pulse Ox 94 04/20/22 00:00 04/19/22 04/19/22 04/20/22 14:59 22:59 06:59 Intake Total 278.333 / 278.333 537.5 / 815.833 270 / 1085.833 Output Total 200 / 200 700 / 900 500 / 1400 Balance 78.333 / 78.333 -162.5 / -84.167 -230 / -314.167 Physical Exam Narrative: Patient is conscious alert oriented X3 No apparent distress BMI 25 Head and neck examination PERRLA no masses no cervical lymphadenopathy no jaundice Cardiac examination audible S1-S2 no murmurs no gallops no arrhythmias Chest scattered rhonchi on the right side Abdomen nontender except mildly at the incisions nondistended soft no organomegaly guarding or rigidity/no signs of peritonitis, lower abdominal drain with serous output Right-sided flank cellulitic changes marked by the nursing staff slightly to slightly diffuse with Extremities no cyanosis no clubbing no edema Data : 04/20/22 01:38 04/20/22 01:38 A&P Assessment and plan (1) Acute appendicitis: Assessment 36 years old gentleman status post laparoscopic appendectomy for perforated appendicitis 04/15/2022 Plan Continue clear liquid for now Continue antimicrobial therapy Incentive spirometer As the patient is bloated I will have him back on clear liquid diet Encourage ambulation and continue pharmacologic DVT prophylaxis We will follow on CT of the abdomen and pelvis with oral and IV contrast Assurance and education All questions have been answered and all concerns have been addressed to patient's satisfaction. Status: Acute Qualifiers: Acute appendicitis type: with generalized peritonitis Appendicitis abscess presence: without abscess Appendicitis gangrene presence: without gangrene Appendicitis perforation presence: with perforation Qualified Code(s): K35.20 - Acute appendicitis with generalized peritonitis, without abscess (2) Abdominal wall cellulitis: Likely abdominal wall cellulitis could be attributed to the underlying intra-abdominal infection. We will plan to send the patient for a stat CT of the abdomen pelvis with oral and IV contrast to rule out potential underlying abscess formation Assurance and education All questions have been answered and all concerns have been addressed to patient's satisfaction. 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
--- NOTE | 2022-04-20 07:01 | PC.NURSE ---
Bedside report received from NADINE Arriaga.
[2022-04-20 08:00] VITALS: BP 151/95; PULSE 78; RESP 16; TEMP 36.3; O2SAT 96
[2022-04-20 08:15] VITALS: PULSE 86; RESP 16; O2SAT 94
[2022-04-20] MEDS: iohexol 350 mg/mL 100 mL Btl IV (09:47)
[2022-04-20] MEDS: iohexol 300 mg/mL 50 mL Btl PO (09:50)
[2022-04-20 11:50] VITALS: BP 151/97; PULSE 79; RESP 18; TEMP 36.5; O2SAT 98
[2022-04-20] MEDS: clindamycin 900 MG/50 ML PREMIX 100 MG IV ×2 (15:06→22:03)
[2022-04-20] MEDS: pantoprazole 40 mg SDV IVP (17:33)
[2022-04-20 20:00] VITALS: BP 143/90; PULSE 80; RESP 18; TEMP 37.5; O2SAT 94
[2022-04-21] VITALS: BP 136/84; PULSE 84; RESP 18; TEMP 36.7; O2SAT 96
[2022-04-21] MEDS: piperacillin-tazobactam 3.375 GM in sodium chloride 0.9% (plus) 50 ML IV ×2 (02:00→11:08)
[2022-04-21 03:06] LABS: Basophils # 0.1 10^3/uL (0.0-0.1); Basophils % 0.4 %; Eosinophils # 0.2 10^3/uL (0.0-0.8); Eosinophils % 1.4 %; Hematocrit 34.5 % (42.0-52.0); Lymphocytes # 2.3 10^3/uL (0.8-4.8); Lymphocytes % 18.2 %; Mean Corpuscular HGB Conc 34.8 g/dL (30.0-36.0); Mean Corpuscular Hemoglobin 29.6 pg (28.0-34.0); Mean Corpuscular Volume 85.2 fl (80-94); Mean Platelet Volume 10.6 fL (7.4-10.4); Monocytes # 1.2 10^3/uL (0.2-0.9); Monocytes % 9.8 %; Neutrophils # 8.64 10^3/uL (1.8-7.7); Nucleated Red Blood Cells % 0 %; Platelet Count 188 10^3/cmm (130-400); Red Blood Count 4.05 10^6/uL (4.1-5.3); Red Cell Distribution Width 11.9 % (12.1-15.1); White Blood Count 12.5 10^3/uL (4.0-10.0)
[2022-04-21 03:27] LABS: Anion Gap 13.9 (5-19); Blood Urea Nitrogen 10 mg/dL (6-20); Carbon Dioxide 24 mmol/L (22-29); Chloride 96 mmol/L (98-107); Glomerular Filtration Rate 108.2 mL/min (90-130); Glucose 111 mg/dL (65-115); Osmolality Calculated 270 mOsm/kg (285-295); Potassium 3.9 mmol/L (3.5-5.1); Sodium 130 mmol/L (136-145)
[2022-04-21] MEDS: heparin 5,000 unit/mL INJ 1 mL 5000 UNIT SUBCUT ×2 (03:39→08:17)
[2022-04-21] MEDS: metroNIDAZOLE IV 500 MG/100 ML PREMIX 100 MG IV ×2 (03:40→08:17)
[2022-04-21] MEDS: HYDROcodone-acetaminophen 5-325 mg Tablet 1 TAB PO ×3 (03:41→16:57)
[2022-04-21 03:48] LABS: Slide Review Slide Review Perform
[2022-04-21 04:00] VITALS: BP 142/89; PULSE 80; RESP 18; TEMP 36.7; O2SAT 95
[2022-04-21] MEDS: clindamycin 900 MG/50 ML PREMIX 100 MG IV ×2 (06:39→15:49)
--- NOTE | 2022-04-21 07:16 | PM.PN ---
Subjective Subjective: Patient overall feels better. Cellulitis is almost gone. Trending down of WBC count to 12.5. Passing gas but no bowel movements yet and adequate urine output. Patient undergone a CT of the abdomen pelvis per my request yesterday and did show; 1.? Postoperative changes recent appendectomy with expected postoperative changes RIGHT lower quadrant. No drainable abscess or fluid collection. 2.? Small amount of fluid and induration RIGHT lower quadrant with surgical drain in place. This is normal postoperative. 3.? Small bowel ileus likely due to post anesthesia status. 4.? Small amount of free fluid in the pelvis. 5.? Small bilateral pleural effusions RIGHT greater than LEFT compressive atelectasis in lung bases new from previous. 6.? No other significant findings Vitals/I&O/Wt Last Vital Signs Temp 98.0 F 04/21/22 04:00 Pulse 80 04/21/22 04:00 Resp 18 04/21/22 04:00 BP 142/89 04/21/22 04:00 Pulse Ox 95 04/21/22 04:00 04/20/22 04/21/22 04/21/22 22:59 06:59 14:59 Intake Total 1250 / 2270 870 / 3140 50 / 50 Output Total 1100 / 2640 1390 / 4030 Balance 150 / -370 -520 / -890 50 / 50 Physical Exam Narrative: Patient is conscious alert oriented X3 No apparent distress BMI 25.1 Head and neck examination PERRLA no masses no cervical lymphadenopathy no jaundice Cardiac examination audible S1-S2 no murmurs no gallops no arrhythmias Chest scattered rhonchi on the right side Abdomen nontender except mildly at the incisions nondistended soft no organomegaly guarding or rigidity/no signs of peritonitis, lower abdominal drain with serous output Right-sided flank cellulitic changes marked by the nursing staff fading Extremities no cyanosis no clubbing no edema Data : 04/21/22 02:41 04/21/22 02:41 Micro: Microbiology 04/15/22 10:33 Blood Culture - Final Blood NO GROWTH AFTER 5 DAYS 04/15/22 10:28 Blood Culture - Final Blood NO GROWTH AFTER 5 DAYS A&P Assessment and plan (1) Acute appendicitis: Assessment 36 years old gentleman status post laparoscopic appendectomy for perforated appendicitis 04/15/2022 Plan Patient tolerated full liquid diet so we will advance to soft GI diet today Continue IV antimicrobial therapy Incentive spirometer Encourage ambulation and continue pharmacologic DVT prophylaxis We will consider sending the patient home today on antimicrobial Assurance and education All questions have been answered and all concerns have been addressed to patient's satisfaction. Status: Acute Qualifiers: Acute appendicitis type: with generalized peritonitis Appendicitis abscess presence: without abscess Appendicitis gangrene presence: without gangrene Appendicitis perforation presence: with perforation Qualified Code(s): K35.20 - Acute appendicitis with generalized peritonitis, without abscess (2) Abdominal wall cellulitis: Patient is responding to antimicrobial therapy as the cellulitis is fading clinically Assurance and education All questions have been answered and all concerns have been addressed to patient's satisfaction. Status: Acute Attestations Medical Necessity Statement*: Patient is requiring inpatient hospitalization passing 2 midnights for antimicrobial IV therapy and repeated physical examination Time Spent in Patient Care: 16 - 35 minutes Coding Level of Care Code Acute Cardiovascular Physician Assistant for [facility] Fwd Diagnoses Acute appendicitis K35.20 Acute appendicitis type: with generalized peritonitis Appendicitis abscess presence: without abscess Appendicitis gangrene presence: without gangrene Appendicitis perforation presence: with perforation Abdominal wall cellulitis L03.311
[2022-04-21 07:45] VITALS: BP 135/95; PULSE 68; RESP 18; TEMP 36.4; O2SAT 95
[2022-04-21 11:40] VITALS: BP 143/89; PULSE 78; RESP 18; TEMP 36.9; O2SAT 96
[2022-04-21] MEDS: glycerin adult supp 1 EACH PR (13:35)
[2022-04-21 15:57] VITALS: BP 148/89; PULSE 86; RESP 18; TEMP 36.7; O2SAT 94
--- NOTE | 2022-04-21 16:20 | PM.DCS ---
Discharge Providers Date of Admission: 04/15/22 16:25 Date of Discharge: April 21, 2022 Attending Provider at Admission: Iam Alba DO Attending Provider at Discharge: Narciso Bajwa MD Diagnoses at Discharge Discharge Diagnosis (1) Acute appendicitis: Details from hospital stay: Condition resolved Status: Acute Qualifiers: Acute appendicitis type: with generalized peritonitis Appendicitis abscess presence: without abscess Appendicitis gangrene presence: without gangrene Appendicitis perforation presence: with perforation Qualified Code(s): K35.20 - Acute appendicitis with generalized peritonitis, without abscess (2) Abdominal wall cellulitis: Details from hospital stay: Condition resolved Status: Acute Reason for Visit Reason for Visit: Abd pain Brief History: This is a pleasant 36 years old gentleman presented to the ER with worsening abdominal pain and got admitted on 04/15/2022 and was found to have perforated appendicitis. Patient undergone laparoscopic appendectomy by one of my partners Dr. Alba and ended up by having intra-abdominal drain placement due to the complexity of the case. 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 The following day it seems to me that has been stable but because of the increase in the WBC count I elected to perform a CT of the abdomen and pelvis that did show; 1.? Postoperative changes recent appendectomy with expected postoperative changes RIGHT lower quadrant. No drainable abscess or fluid collection. 2.? Small amount of fluid and induration RIGHT lower quadrant with surgical drain in place. This is normal postoperative. 3.? Small bowel ileus likely due to post anesthesia status. 4.? Small amount of free fluid in the pelvis. 5.? Small bilateral pleural effusions RIGHT greater than LEFT compressive atelectasis in lung bases new from previous. 6.? No other significant findings ? Patient was placed temporarily on clear liquid diet because he was bloated and then he was advanced later on as tolerated. Continues to pass gas and today he had couple of bowel movements one of them describes it as being large. I added clindamycin IV to the antimicrobial therapy as well as Flagyl and seems that helped with patient's management as well. Patient continued to be ambulatory and receiving pharmacologic DVT prophylaxis. Patient's pain was controlled with p.o. pain medications and met the appropriate criteria for discharge home today. Physical Exam Narrative: Patient is conscious alert oriented X3 No apparent distress BMI 25.1 Head and neck examination PERRLA no masses no cervical lymphadenopathy no jaundice Cardiac examination audible S1-S2 no murmurs no gallops no arrhythmias Chest scattered rhonchi on the right side Abdomen nontender except mildly at the incisions nondistended soft no organomegaly guarding or rigidity/no signs of peritonitis, lower abdominal drain with serous output Right-sided flank cellulitic changes marked by the nursing staff fading Extremities no cyanosis no clubbing no edema Discharge Data Studies Completed and Pending Completed Studies During Hospitalization Category Date Time Status CT abdomen pelvis w con* [id number] Stat Cat Scan 04/20/22 06:[address] abdomen pelvis w con* [id number] Urgent Cat Scan 04/15/22 08:53 Completed Pathology: Surgical [PTH] Routine Pth 04/15/22 14:34 Completed Pending at discharge Category Date Time Status ES surgery / GI images Routine Exams 04/15/22 11:07 Taken Radiology Impressions Abdomen/Pelvis CT 04/20/22 06:46 IMPRESSION: 1. Postoperative changes recent appendectomy with expected postoperative changes RIGHT lower quadrant. No drainable abscess or fluid collection. 2. Small amount of fluid and induration RIGHT lower quadrant with surgical drain in place. This is normal postoperative. 3. Small bowel ileus likely due to post anesthesia status. 4. Small amount of free fluid in the pelvis. 5. Small bilateral pleural effusions RIGHT greater than LEFT compressive atelectasis in lung bases new from previous. 6. No other significant findings Laboratory Results WBC 12.5 10^3/uL (4.0-10.0) H 04/21/22 02:41 RBC 4.05 10^6/uL (4.1-5.3) L 04/21/22 02:41 Hgb 12.0 g/dL (11.7-16.6) 04/21/22 02:41 Hct 34.5 % (42.0-52.0) L 04/21/22 02:41 MCV 85.2 fl (80-94) 04/21/22 02:41 MCH 29.6 pg (28.0-34.0) 04/21/22 02:41 MCHC 34.8 g/dL (30.0-36.0) 04/21/22 02:41 RDW 11.9 % (12.1-15.1) L 04/21/22 02:41 Plt Count 188 10^3/cmm (130-400) 04/21/22 02:41 MPV 10.6 fL (7.4-10.4) H 04/21/22 02:41 Neut % (Auto) 69.0 % 04/21/22 02:41 Lymph % (Auto) 18.2 % 04/21/22 02:41 Real % (Auto) 9.8 % 04/21/22 02:41 Eos % (Auto) 1.4 % 04/21/22 02:41 Baso % (Auto) 0.4 % 04/21/22 02:41 Neut # (Auto) 8.64 10^3/uL (1.8-7.7) H 04/21/22 02:41 Lymph # (Auto) 2.3 10^3/uL (0.8-4.8) 04/21/22 02:41 Real # (Auto) 1.2 10^3/uL (0.2-0.9) H 04/21/22 02:41 Eos # (Auto) 0.2 10^3/uL (0.0-0.8) 04/21/22 02:41 Baso # (Auto) 0.1 10^3/uL (0.0-0.1) 04/21/22 02:41 Nucleated RBC % (auto) 0 % 04/21/22 02:41 Nucleated RBCs # 0.0 /100WBC 04/21/22 02:41 Sodium 130 mmol/L (136-145) L 04/21/22 02:41 Potassium 3.9 mmol/L (3.5-5.1) 04/21/22 02:41 Chloride 96 mmol/L (98-107) L 04/21/22 02:41 Carbon Dioxide 24 mmol/L (22-29) 04/21/22 02:41 Anion Gap 13.9 (5-19) 04/21/22 02:41 BUN 10 mg/dL (6-20) 04/21/22 02:41 Creatinine 0.8 mg/dL (0.7-1.2) 04/21/22 02:41 GFR Calculation 108.2 mL/min (90-130) 04/21/22 02:41 Glucose 111 mg/dL (65-115) 04/21/22 02:41 POC Glucose 112 mg/dL (70-110) H 04/16/22 15:37 Calculated Osmolality 270 mOsm/kg (285-295) L 04/21/22 02:41 Calcium 9.0 mg/dL (8.5-10.5) 04/21/22 02:41 Phosphorus 3.3 mg/dL (2.5-4.5) D 04/18/22 04:43 Magnesium 2.1 mg/dL (1.7-2.3) 04/18/22 04:43 Total Bilirubin 1.0 mg/dL (0.15-1.2) 04/15/22 08:31 AST 11 U/L (0-40) 04/15/22 08:31 ALT 11 U/L (0-41) 04/15/22 08:31 Alkaline Phosphatase 134 IU/L (40-130) H 04/15/22 08:31 C-Reactive Protein 53.3 mg/L (0.0-4.9) H 04/15/22 08:31 Total Protein 8.0 g/dL (6.6-8.7) 04/15/22 08:31 Albumin 4.9 g/dL (3.5-5.2) 04/15/22 08:31 Globulin 3.1 g/dL (1.3-4.6) 04/15/22 08:31 Lipase 15 U/L (13-60) 04/15/22 08:31 Urine Color Yellow (Yellow) 04/15/22 08:31 Urine Appearance Clear (CLEAR) 04/15/22 08:31 Urine pH 5 (5-7) 04/15/22 08:31 Ur Specific [place] 1.025 (1.005-1.030) 04/15/22 08:31 Urine Protein Neg (Negative) 04/15/22 08:31 Urine Glucose (UA) Norm (Normal) 04/15/22 08:31 Urine Ketones 1+ (Negative) H 04/15/22 08:31 Urine Blood 2+ (Negative) H 04/15/22 08:31 Urine Nitrate Negative (Negative) 04/15/22 08:31 Urine Bilirubin 1+ (Negative) H 04/15/22 08:31 Urine Urobilinogen 1 mg/dL (Negative) H 04/15/22 08:31 Ur Leukocyte Esterase Trace (Negative) H 04/15/22 08:31 Urine RBC None /hpf (0-2) 04/15/22 08:31 Urine WBC 0-4 /hpf (0-5) H 04/15/22 08:31 Ur Squamous Epith Cells None /hpf (0-5) 04/15/22 08:31 Amorphous Sediment Not Reportable 04/15/22 08:31 Urine Bacteria Trace /hpf (NONE) 04/15/22 08:31 Urine Mucus 2+ /hpf 04/15/22 08:31 Procedures Performed Date of procedure: April 15, 2022 Pre-op diagnosis: Acute appendicitis Post-op diagnosis: same Procedure done: Laparoscopic Appendectomy Specimens removed/disposition: appendix Surgeon: Dr. Iam Alba, DO Estimated blood loss: 10 Complications: none apparent Brief History: 36 year old male presented with 4 days of abdominal pain and was found to have perforated appendicitis by CT. Laparoscopic appendectomy was indicated. Risks and benefits were explained and documented. Procedure: Patient was wheeled into the operative room and placed on the OR table in a supine position.? Abdomen was inspected prepped and draped in usual sterile fashion.? Time-out was performed and all present were in agreement.? A 15 blade scalp was used to make a stab incision in the left upper quadrant and intra-abdominal insufflation was achieved using a Veress needle.? After localizing the tissue incisions were made and a 12 millimeter trocar was placed into the umbilicus as well as a 5mm in the right lower quadrant and a 5 mm in the left lower quadrant . ? The appendix was difficult to identify as there was a large phlegmon, abscess and stool in the abdomen. The appendix was perforated midway and large stool balls were found contained within an abscess cavity. Extensive dissection was required to free the base of the appendix..? I used the Voyant to ligate the mesoappendix at the base.? I then used 2 PDS endo-loops to snare the base of the appendix.? I then used the Voyant to ligate the appendix distally.? The appendix? was removed in pieces, along with stool, from the abdomen using an Endo-Catch bag through the umbilical incision. ? I examined the abdomen and no further pathology was identified.? Hemostasis was noted.? A 19 Fr Aurelio drain was placed into the abscess cavity, coming out of the right lower quadrant. I then closed the umbilical site with a Ronaldo-Andres and 0 Vicryl suture in a figure of 8 fashion. ? All ports removed.? Skin was washed and dried.? Incisions were closed with 3-0 nylone in an interrupted fashion. Bandages were applied.? Patient tolerated the procedure well. Dictated By: Iam Alba DO Signed By: Iam Alba DO.. Vitals Last Vital Signs Temp 98.1 F 04/21/22 15:57 Pulse 86 04/21/22 15:57 Resp 18 04/21/22 15:57 BP 148/89 04/21/22 15:57 Pulse Ox 94 04/21/22 15:57 Discharge Plan Discharge Patient Disposition: Home Condition: Stable Prescriptions: New amoxicillin-pot clavulanate 875-125 mg tablet 1 tab PO Q12H Qty: 20 0RF hydrocodone-acetaminophen 5-325 mg tablet 1 tab PO Q8H PRN (Reason: pain) Qty: 20 0RF Continued ibuprofen 200 mg Tablet 600 mg PO Q6H PRN (Reason: Pain) 0RF Superbeets Concentrated Powder See Rx Instructions .ROUTE .COMPLEX 0RF Rx Instructions: one scoop every 2-3 days Discharge Orders: Discharge Order (Routine); Ordered 04/21/22 Ordered By: Narciso Bajwa Referrals: Iam Alba DO [Physician] - 05/05/22 10:20 am () Discharge Diet: Advance as tolerated Discharge Activity: Resume usual activity Patient Instructions: Hydrocodone/Acetaminophen (By mouth), Amoxicillin (By mouth), Laparoscopic Appendectomy (DC), Opioid Safety Activity Restrictions/Additional Instructions: Leave bandage over drain site on for 2-3 days. Do not soak incisions underwater for 2 weeks. Shower daily. Discharge Attestations Time Spent in Discharge Care*: greater than 30 min Specific Discharge Activities: educating patient and educating and/or supporting family/caregiver Status at Discharge: Cognitive status at discharge: cognitively intact, Behavioral status at discharge: cooperative, Functional status at discharge: independent ambulation, Overall status at discharge: patient is progressing back to baseline Quality Metrics Clinical Quality Measures [ No reported AMI, CVA or VTE this stay] Coding Level of Care Code Acute Chg FW DC note Diagnoses Acute appendicitis K35.20 Acute appendicitis type: with generalized peritonitis Appendicitis abscess presence: without abscess Appendicitis gangrene presence: without gangrene Appendicitis perforation presence: with perforation Abdominal wall cellulitis L03.311
[2022-04-21 17:01] VITALS: BP 148/89; PULSE 86; RESP 18; TEMP 36.7; O2SAT 94
--- NOTE | 2022-04-21 17:02 | PC.NURSE ---
discharge paperwork was gone over with pt and his . all questions answered. pt and were supplied with extra dressings to place around isabel incision site after showering. caring for the drain was also gone over with pt and . s/s of infection and education to call and come back to the ER if said findings occur were given to pt and . f/u appt discussed with pt. medications sent to pharmacy of pts choice. iv removed. pt tolerated fair. 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
== END 2022-04-21 17:15 | disposition home or self-care (01) | DRG 339 ==
LOC: ER 10:15 → OR 11:00 → MEDSURG 16:25
PROVIDERS: Admitting Provider Surgery; Emergency Provider Physician Assistant; Visit Provider Surgery
PROC: 0DTJ4ZZ Resection of Appendix, Percutaneous Endoscopic Approach (ICD-10-PCS; CPT 44970; principal; 2022-04-15 11:40)
DX: K35.21 Acute appendicitis with generalized peritonitis, with abscess (principal); L03.311 Cellulitis of abdominal wall; F41.9 Anxiety disorder, unspecified; I10 Essential (primary) hypertension; F17.210 Nicotine dependence, cigarettes, uncomplicated
CPT/HCPCS: 36415; 36416; 74177; 80048; 80053; 81001; 82962; 83690; 83735; 84100; 85025; 86140; 87040; 88304; 96365; 96372; 96375; 99285; C9113; J0330; J1100; J1170; J1644; J2250; J2270; J2405; J2543; J2710; J2765; J3010; J3490; J7030; Q9967; S0030

== ENCOUNTER → 2022-11-18 13:27 | Outpatient (BNVA) | payer MEDICAID, SELFPAY | PROVIDERS: PCP Family Medicine; Visit Provider Urology | DX: N43.3 Hydrocele, unspecified (principal) | CPT/HCPCS: 81003 ==